=== PATIENT | female | born 1990 | race Caucasian/White ===

== ENCOUNTER 2022-08-23 13:56 | Outpatient (CLI) | payer BC, SELFPAY ==
[2022-08-23 21:47] LABS: Albumin* 4.3 g/dL (3.3-5.0); Chloride* 106 mmol/L (96-114); Sodium* 139 mmol/L (135-149)
[2022-08-23 21:48] LABS: Potassium* 4.3 mmol/L (3.6-5.1)
[2022-08-23 21:50] LABS: Alanine Aminotransferase* 17 U/L (4-35); Alkaline Phosphatase* 58 U/L (40-150); Aspartate Amino Transferase* 23 U/L (12-35); Bilirubin Total* 0.3 mg/dL (0.1-1.5); Blood Urea Nitrogen* 12 mg/dL (5-24); Calcium* 8.8 mg/dL (8.4-10.6); Carbon Dioxide* 27 mmol/L (20-32); Creatinine* 0.7 mg/dL (0.5-1.5); Estimated Glomerular Filt Rate 120 ml/min; Glucose* 92 mg/dL (60-115); Total Protein* 6.8 g/dL (6.0-8.3)
[2022-08-23 22:34] LABS: HIV 1/2/P24 Combo Screen* Negative (Negative); Hepatitis C Virus Antibody* Negative (Negative)
[2022-08-23 23:17] LABS: Chlamydia DNA Amplified* NOT DETECTED (No Detected); GC DNA Amplified* NOT DETECTED (No Detected)
[2022-08-26 06:27] LABS: Rapid Plasma Reagin (RPR) Non Reactive (Non Reactive)
== END 2022-08-23 13:57 | disposition home or self-care (01) ==
PROVIDERS: PCP Family Medicine; Visit Provider Family Medicine
DX: Z00.00 Encounter for general adult medical examination without abnormal findings (principal); Z11.3 Encounter for screening for infections with a predominantly sexual mode of transmission; Z11.59 Encounter for screening for other viral diseases
CPT/HCPCS: 80053; 86592; 86703; 86803; 87491; 87591

== ENCOUNTER 2023-04-08 16:27 | Emergency (ER) | payer BC, SELFPAY ==
[2023-04-08 16:34] VITALS: BP 122/95; PULSE 90; RESP 18; TEMP 36.4; O2SAT 99; BMI 24.3
[2023-04-08] MEDS: 0.9 % SODIUM CHLORIDE 1000 ml 1,000 ML IV (17:05)
[2023-04-08] MEDS: diphenhydrAMINE 50 MG/ML inj 25 MG IVP (17:08)
[2023-04-08] MEDS: KETOROLAC 30 MG/ML inj IVP (17:08)
--- NOTE | 2023-04-08 17:50 | ED.GENADULT ---
HPI - General Adult General Chief complaint: Headache/Migraine Stated complaint: Migrane and vomiting due to medication Time Seen by Provider: 04/08/23 16:30 Source: patient Mode of arrival: ambulatory Limitations: no limitations History of Present Illness HPI narrative: 32-year-old female coming in today complaining of a migraine headache. Very similar to ones she has had in the past. She denies any focal neurologic deficits. She denies any recent illness, fevers, chills. She does feel nauseated and has been vomiting today. She took Tylenol, Zofran yesterday when the headache started and then a Imitrex today which did not help. She did start Suboxone recently. She did take Zofran prior to coming in as well. Related Data Home Medications Medication Instructions Recorded Confirmed ipratropium 0.5 mg-albuterol 3 mg 3 ml inhalation Q4-6H PRN 08/07/22 11/09/22 (2.5 mg base)/3 mL nebulization soln clonidine HCl 0.1 mg tablet 0.1 mg PO DAILY PRN 11/09/22 11/09/22 Previous Rx's Medication Instructions Recorded albuterol sulfate 90 mcg/actuation 2 puff inhalation Q4-6H #6.7 grams 08/23/22 aerosol inhaler (Ventolin HFA) norethindrone (contraceptive) 0.35 0.35 mg PO QDAY #84 tabs 08/23/22 mg tablet propranolol 20 mg tablet 20 mg PO BID PRN anxiety #90 tabs 08/23/22 sumatriptan succinate 100 mg tablet See Rx Instructions PO .COMPLEX #9 08/23/22 tabs trazodone 50 mg tablet 50 mg PO QHS PRN insomnia #90 tabs 08/23/22 terbinafine HCl 250 mg tablet 250 mg PO QDAY #14 tabs 11/09/22 lamotrigine 100 mg tablet 100 mg PO DAILY #90 tabs 01/03/23 Allergies Allergy/AdvReac Type Severity Reaction Status Date / Time Gadolinium-Containing Allergy Mild Anaphylaxis Verified 11/09/22 13:15 Contrast Medi Iodinated Contrast Media Allergy Mild Anaphylaxis Verified 11/09/22 13:15 Review of Systems Status of ROS: Reports: 10 or more systems reviewed and unremarkable except as noted in History and below PFSH PFSH Social History Smoking Status: Current every day smoker What tobacco products do you use: cigarettes Do you use any of these nicotine containing products: Other Second hand tobacco smoke exposure: No How often do you have a drink containing alcohol: never How often do you have six or more drinks on one occasion: Never AUDIT-C Alcohol total score: 0 Non-prescribed substance use: amphetamines/methamphetamines Non-prescribed substance use details: 3 hits last night of meth-didn't help Little interest or pleasure in doing things: not at all service: No Exam Narrative: Exam Narrative: Well-nourished well-developed patient in no acute distress. Alert and oriented. Answers questions appropriately. Mood and affect are appropriate. Thoughts are goal oriented and rational. No tangential or magical thinking noted. Patient speaks in full sentences without needing to catch her breath. Does not appear ill or toxic. HEENT: Normocephalic atraumatic. Pupils are equally round reactive to light. Extraocular muscles are intact. Conjunctivae are moist without any icterus noted. Moist mucous membranes. Posterior pharynx is normal. Neck is soft without any lymphadenopathy or thyromegaly. No masses are appreciated. Cardiovascular: Heart is regular rate and rhythm S1 and S2 are present without any murmurs. Lungs: Clear to auscultation bilaterally no wheezes rhonchi or rales are appreciated. Patient takes deep breaths without any discomfort. Abdomen: Soft and nontender nondistended with normal bowel sounds. Extremities: Bilateral lower extremities are without edema. Skin: Well perfused without any obvious rashes. Const: Vital Signs, click to edit/add: Vital Signs - 24 hr 04/08/23 16:34 Temperature 97.5 F L Pulse Rate [Pulse Oximeter] 90 Respiratory Rate 18 Blood Pressure [Ri ght Upper Arm] 122/95 H Pulse Oximetry 99 Oxygen Delivery Me thod Room Air Course Course ED Course: IV was established and patient was given a L of normal saline, Toradol and Benadryl. Symptoms improved. Vital Signs Vital signs: Initial Vital Signs Temperature 97.5 F L 04/08/23 16:34 Temperature Source Temporal Artery Scan 04/08/23 16:34 Pulse Rate 90 04/08/23 16:34 Pulse Rhythm Regular 04/08/23 16:34 Respiratory Rate 18 04/08/23 16:34 Blood Pressure 122/95 H 04/08/23 16:34 Blood Pressure Mean 104 04/08/23 16:34 Blood Pressure Position Supine 04/08/23 16:34 Pulse Oximetry 99 04/08/23 16:34 Oxygen Delivery Method Room Air 04/08/23 16:34 Vital Signs Temperature 97.5 F L 04/08/23 16:34 Pulse Rate 90 04/08/23 16:34 Respiratory Rate 18 04/08/23 16:34 Blood Pressure 122/95 H 04/08/23 16:34 Pulse Oximetry 99 04/08/23 16:34 Oxygen Delivery Method Room Air 04/08/23 16:34 Temperature 97.5 F L 04/08/23 16:34 Pulse Rate 90 04/08/23 16:34 Respiratory Rate 18 04/08/23 16:34 Blood Pressure 122/95 H 04/08/23 16:34 Pulse Oximetry 99 04/08/23 16:34 Oxygen Delivery Method Room Air 04/08/23 16:34 Medical Decision Making MDM Narrative Medical decision making narrative: 32-year-old female with a migraine. Patient discharged home in improved condition. we discussed rest and follow-up as needed. Patient sent home with Ariel ESPOSITO per her request. Discharge Plan Discharge Clinical Impression: Migraine Patient Disposition: Home, Self-Care Condition: Improved Additional Instructions: Ariel ESPOSITO sent to [facility] Prescriptions: No Action clonidine HCl 0.1 mg tablet 0.1 mg PO DAILY PRN Patient Comments: TAKE 1 TABLET BY MOUTH DAILY NEEDED FOR ANXIETY OR PANIC norethindrone (contraceptive) 0.35 mg tablet 0.35 mg PO QDAY Qty: 84 3RF sumatriptan succinate 100 mg tablet See Rx Instructions PO .COMPLEX Qty: 9 12RF Rx Instructions: take 1 tab at onset of headache; if no relief, may repeat 1 tab after at least 2 hrs; max = 2 tabs/24 hrs PO trazodone 50 mg tablet 50 mg PO QHS PRN (Reason: insomnia) Qty: 90 3RF propranolol 20 mg tablet 20 mg PO BID PRN (Reason: anxiety) Qty: 90 3RF albuterol sulfate [Ventolin HFA] 90 mcg/actuation HFA aerosol inhaler 2 puff inhalation Q4-6H Qty: 6.7 3RF Rx Instructions: wants 'the blue one' if possible terbinafine HCl 250 mg tablet 250 mg PO QDAY Qty: 14 0RF ipratropium-albuterol 0.5 mg-3 mg(2.5 mg base)/3 mL solution for nebulization 3 ml inhalation Q4-6H PRN lamotrigine 100 mg tablet 100 mg PO DAILY Qty: 90 3RF Follow Up/Referrals: Karlee Romero MD [Primary Care Provider] - Stand Alone Forms: [employer] Info Instructions
== END 2023-04-08 18:21 | disposition home or self-care (01) ==
LOC: ED 18:15
PROVIDERS: Emergency Provider Family Medicine; PCP Family Medicine
DX: G43.909 Migraine, unspecified, not intractable, without status migrainosus (principal)
CPT/HCPCS: 96374; 96375; 99283; 99284; J1200; J1885; J7030

== ENCOUNTER 2023-04-10 15:42 | Emergency (ER) | payer BC, SELFPAY ==
[2023-04-10] VITALS (8 sets, daily range): BP systolic 117; BP diastolic 78; PULSE 69–87; RESP 16; TEMP 35.9; O2SAT 98–100; BMI 25.1
--- NOTE | 2023-04-10 16:40 | ED_ITS ---
HPI - General Adult General Chief complaint: Headache/Migraine Stated complaint: Migraine, neck pain Time Seen by Provider: 04/10/23 16:16 History of Present Illness HPI narrative: Pt was here on Saturday for migraines. Pt states migraines and neck pain continue, pt states she is still throwing up yellow. Also reports waking up sweating for several nights. Pt reports she had a concussion in July and is worried these migraines are related to this . Pt states she looked up symptoms of meningitis on the internet and is concerned about this as well because her periods have been heavier than normal for the last 5 months. Pt also reports she has started taking suboxone recently and she also takes lamotrigine and sumatriptan and zofran, pt reports she looked up on google to see if her medications interacted and saw that sumatriptan and suboxone can react and is concerned about this now as well. Pt appears anxious in triage. 32-year-old woman presenting to the emergency department with concern of headache and potential medication interactions. She was seen in this department 2 days ago and treated for headache/migraine with normal saline IV ketorolac and diphenhydramine. She is concerned that she has more frequent headaches and increasing more severe over the last year. She notes a history of migraines ?since I was a toddler?. In July apparently was diagnosed with a concussion. It sounds as though this corresponds with worsening headaches. She has also been waking up sweating for several nights. She has recently initiated treatment with Suboxone. Is concerned about interaction potentially between sumatriptan and Suboxone. Does have lamotrigine sumatriptan Zofran available for headaches. She has been ?throwing up yellow?. She is having persistent as demonstrated, left-sided neck pain. Sweats but no reported fever. It becomes also apparent that is concerned about potential meningitis. She does smoke? Related Data Home Medications Medication Instructions Recorded Confirmed ipratropium 0.5 mg-albuterol 3 mg 3 ml inhalation Q4-6H PRN 08/07/22 11/09/22 (2.5 mg base)/3 mL nebulization soln clonidine HCl 0.1 mg tablet 0.1 mg PO DAILY PRN 11/09/22 11/09/22 buprenorphine 8 mg-naloxone 2 mg 10 mg sublingual BID 04/10/23 04/10/23 sublingual film (Suboxone) hydroxyzine HCl 25 mg tablet 25 mg PO 3XD 04/10/23 04/10/23 ibuprofen 600 mg tablet 600 mg PO 3XD 04/10/23 04/10/23 naloxone intranasal 04/10/23 ondansetron HCl 4 mg tablet 4 mg PO Q8H PRN 04/10/23 04/10/23 Previous Rx's Medication Instructions Recorded albuterol sulfate 90 mcg/actuation 2 puff inhalation Q4-6H #6.7 grams 08/23/22 aerosol inhaler (Ventolin HFA) norethindrone (contraceptive) 0.35 0.35 mg PO QDAY #84 tabs 08/23/22 mg tablet propranolol 20 mg tablet 20 mg PO BID PRN anxiety #90 tabs 08/23/22 sumatriptan succinate 100 mg tablet See Rx Instructions PO .COMPLEX #9 08/23/22 tabs trazodone 50 mg tablet 50 mg PO QHS PRN insomnia #90 tabs 08/23/22 terbinafine HCl 250 mg tablet 250 mg PO QDAY #14 tabs 11/09/22 lamotrigine 100 mg tablet 100 mg PO DAILY #90 tabs 01/03/23 Allergies Allergy/AdvReac Type Severity Reaction Status Date / Time Gadolinium-Containing Allergy Mild Anaphylaxis Verified 11/09/22 13:15 Contrast Medi Iodinated Contrast Media Allergy Mild Anaphylaxis Verified 11/09/22 13:15 aspirin Allergy Unknown Verified 04/10/23 16:00 Review of Systems Status of ROS: Reports: 6 or more systems reviewed and unremarkable except as noted in History and below [facility] Social History Smoking Status: Current every day smoker What tobacco products do you use: cigarettes Do you use any of these nicotine containing products: Other Second hand tobacco smoke exposure: No How often do you have a drink containing alcohol: never How often do you have six or more drinks on one occasion: Never AUDIT-C Alcohol total score: 0 Non-prescribed substance use: denies use Little interest or pleasure in doing things: not at all service: No Exam Narrative: Exam Narrative: Pleasant. Smell of cigarette smoke. Mildly anxious. Breathing easily. Cranial nerves 2-12 intact. Well-perfused peripherally and without edema. Heart with regular rate and rhythm. Neck exam --is lying flat in the bed but brings her head up without apparent distress. Speaking fluidly easily. Rather tense and somewhat tender low paracervical and trapezial musculature. Pupils are equal and briskly reactive. Skin is warm dry without rash. Further neuro -Kernig's and Brudzinski's are negative. Const: Vital Signs, click to edit/add: Vital Signs - 24 hr 04/10/23 15:51 Temperature 96.6 F L Pulse Rate [Pulse Oximeter] 87 Respiratory Rate 16 Blood Pressure [Ri ght Upper Arm] 117/78 Pulse Oximetry 98 Oxygen Delivery Me thod Room Air Documenting provider has reviewed patient's vital signs: yes Course Vital Signs Vital signs: Initial Vital Signs Temperature 96.6 F L 04/10/23 15:51 Temperature Source Temporal Artery Scan 04/10/23 15:51 Pulse Rate 87 04/10/23 15:51 Respiratory Rate 16 04/10/23 15:51 Blood Pressure 117/78 04/10/23 15:51 Blood Pressure Mean 91 04/10/23 15:51 Blood Pressure Position Sitting 04/10/23 15:51 Pulse Oximetry 98 04/10/23 15:51 Oxygen Delivery Method Room Air 04/10/23 15:51 Vital Signs Temperature 96.6 F L 04/10/23 15:51 Pulse Rate 87 04/10/23 15:51 Respiratory Rate 16 04/10/23 15:51 Blood Pressure 117/78 04/10/23 15:51 Pulse Oximetry 98 04/10/23 15:51 Oxygen Delivery Method Room Air 04/10/23 15:51 Temperature 96.6 F L 04/10/23 15:51 Pulse Rate 76 04/10/23 19:45 Respiratory Rate 16 04/10/23 15:51 Blood Pressure 117/78 04/10/23 15:51 Pulse Oximetry 100 04/10/23 19:45 Oxygen Delivery Method Room Air 04/10/23 15:51 Medical Decision Making MDM Narrative Medical decision making narrative: I wonder if some of these night sweats could be related to initiating Suboxone more than anything else. Could be pain as well. I think it is unlikely that there is meningitis here. She does not have meningeal signs other than perhaps headache. However since we will be treating her headache with IV fluids, diphenhydramine, Zofran, we will check a couple labs for reassurance which I think will also be therapeutic. Would be reasonable to discuss with pharmacy as well. I stated I am going to leave to discuss this quickly and then she asked if in the interim she could have the IV treatment that she received 2 days ago. Consider addition of dexamethasone as well; hoping this will have longer effect. Pharmacy does not have concerns of medication interactions as feared by Ms. Salcedo. CBC and CRP are reassuring. With treatments above was markedly improved. See patient discharge plan. Medical Records Medical records reviewed: Yes I reviewed the patient's medical records Lab Data Lab results reviewed: Yes I reviewed the patient's lab results Labs: Lab Results 04/10/23 Range/Units 17:15 WBC 4.65 (4.50-11.00) K/uL RBC 4.20 (4.00-5.20) m/uL Hgb 12.0 (12.0-16.0) gm/dL Hct 35.6 (33.0-51.0) % MCV 85 (80-100) fL MCH 29 (26-34) pg MCHC 34 (32-36) gm/dL RDW Coeff of Camilla 12.8 (11.5-15.5) % Plt Count 248 (140-440) K/uL Neut % (Auto) 46.0 (42.0-72.0) % Lymph % (Auto) 44.5 H (20-44) % [place] % (Auto) 5.2 (0.0-11.0) % Eos % (Auto) 3.7 (0.0-7.0) % Baso % (Auto) 0.6 (0.0-3.0) % Neut # (Auto) 2.14 (1.7-7.0) K/uL Lymph # (Auto) 2.10 (0.90-2.90) K/uL [place] # (Auto) 0.20 (0.00-0.90) K/UL Eos # (Auto) 0.17 (0.00-0.50) K/uL Baso # (Auto) 0.03 (0.00-0.30) K/uL Abs Immat Gran (auto) 0.00 (0.00-0.30) K/uL Imm/Tot Granulo (auto) 0.0 % C-Reactive Protein < 0.5 L (0.5-1.0) mg/dL Discharge Plan Discharge Clinical Impression: Migraine Patient Disposition: Home, Self-Care Condition: Improved Additional Instructions: Focus on hydration. Try to get quality and regular sleep. Try to get in a little heart pumping exercise daily. And do your best to quit smoking. Consider discussing this cessation as well as adjustment of your headache medications or potential further evaluation or treatment for concussion and what might be secondary headaches, on follow-up with your primary care provider. See handout also on upper back stretches/exercises that might be helpful in decreasing recurrence of your headaches as I think some of them are triggered by upper back/neck muscle tension. The dexamethasone probably has not gotten to full effect and I would expect it to stay in your system over the next day and a half. Prescriptions: No Action clonidine HCl 0.1 mg tablet 0.1 mg PO DAILY PRN Patient Comments: TAKE 1 TABLET BY MOUTH DAILY NEEDED FOR ANXIETY OR PANIC norethindrone (contraceptive) 0.35 mg tablet 0.35 mg PO QDAY Qty: 84 3RF sumatriptan succinate 100 mg tablet See Rx Instructions PO .COMPLEX Qty: 9 12RF Rx Instructions: take 1 tab at onset of headache; if no relief, may repeat 1 tab after at least 2 hrs; max = 2 tabs/24 hrs PO trazodone 50 mg tablet 50 mg PO QHS PRN (Reason: insomnia) Qty: 90 3RF propranolol 20 mg tablet 20 mg PO BID PRN (Reason: anxiety) Qty: 90 3RF albuterol sulfate [Ventolin HFA] 90 mcg/actuation HFA aerosol inhaler 2 puff inhalation Q4-6H Qty: 6.7 3RF Rx Instructions: wants 'the blue one' if possible terbinafine HCl 250 mg tablet 250 mg PO QDAY Qty: 14 0RF ipratropium-albuterol 0.5 mg-3 mg(2.5 mg base)/3 mL solution for nebulization 3 ml inhalation Q4-6H PRN hydroxyzine HCl 25 mg tablet 25 mg PO 3XD ibuprofen 600 mg tablet 600 mg PO 3XD buprenorphine-naloxone [Suboxone] 8-2 mg film 10 mg sublingual BID naloxone [Narcan] intranasal ondansetron HCl 4 mg tablet 4 mg PO Q8H PRN lamotrigine 100 mg tablet 100 mg PO DAILY Qty: 90 3RF Follow Up/Referrals: Karlee Romero MD [Primary Care Provider] - Stand Alone Forms: [employer] Info Instructions
[2023-04-10] MEDS: ONDANSETRON 2 MG/ML inj 4 MG IVP (17:25)
[2023-04-10] MEDS: 0.9 % SODIUM CHLORIDE 1000 ml 1,000 ML IV (17:25)
[2023-04-10] MEDS: diphenhydrAMINE 50 MG/ML inj 25 MG IVP (17:25)
[2023-04-10 17:26] LABS: Basophils Absolute Auto 0.03 K/uL (0.00-0.30); Basophils Percent Auto 0.6 % (0.0-3.0); Eosinophils Absolute Auto 0.17 K/uL (0.00-0.50); Eosinophils Percent Auto 3.7 % (0.0-7.0); Hematocrit 35.6 % (33.0-51.0); Lymphocytes Percent Auto 44.5 % (20-44); Mean Corpuscular HGB Conc 34 gm/dL (32-36); Mean Corpuscular Hemoglobin 29 pg (26-34); Mean Corpuscular Volume 85 fL (80-100); Monocytes Percent Auto 5.2 % (0.0-11.0); Neutrophils Absolute Auto 2.14 K/uL (1.7-7.0); Platelet Count* 248 K/uL (140-440); RDW Coefficient of Variation % 12.8 % (11.5-15.5); White Blood Count* 4.65 K/uL (4.50-11.00)
[2023-04-10 17:42] LABS: Slide Review Reflex No
[2023-04-10 17:57] LABS: C Reactive Protein* < 0.5 mg/dL (0.5-1.0)
[2023-04-10] MEDS: dexAMETHasone 10 MG/ML inj IVP (18:13)
== END 2023-04-10 19:56 | disposition home or self-care (01) ==
PROVIDERS: Emergency Provider Family Medicine; PCP Family Medicine
DX: G43.909 Migraine, unspecified, not intractable, without status migrainosus (principal)
CPT/HCPCS: 36415; 85025; 86140; 96374; 96375; 99283; 99284; J1100; J1200; J2405; J7030

== ENCOUNTER 2023-09-30 14:30 | Emergency (ER) | payer SELFPAY ==
[2023-09-30 15:04] VITALS: BP 119/78; PULSE 76; RESP 18; O2SAT 100; BMI 25.8
--- NOTE | 2023-09-30 17:41 | ED.GENADULT ---
HPI - General Adult General Date Seen: 09/30/23 Chief complaint: Headache/Migraine Stated complaint: Pinched nerve, migraine, nausea Time Seen by Provider: 09/30/23 17:33 Source: patient, RN notes reviewed and old records reviewed Mode of arrival: ambulatory Limitations: no limitations History of Present Illness HPI narrative: Patient is a 32-year-old woman with a long history of migraine headaches. She says that she has had a migraine for the past couple of days which seems to be exacerbated by the fact that she has a pinched nerve in her upper back/shoulder as well. She says that she has to take Imitrex for her headaches which did help, but she started taking Suboxone, and she feels like Imitrex and Suboxone are problematic together, so she has stopped taking the Imitrex. She says she has tried Tylenol and ibuprofen the past couple of days but has not found relief. She has had nausea and has had a couple episodes of vomiting, including once while she was at the chiropractor for her pinched nerve today. No fevers or recent trauma. Headache otherwise typical. She says she gets migraines every couple of months or so, we did see her here in July with migraine twice and she responded well to a standard migraine cocktail. She says she feels she is dehydrated and needs fluids at this point. Related Data Home Medications Medication Instructions Recorded Confirmed ipratropium 0.5 mg-albuterol 3 mg 3 ml inhalation Q4-6H PRN 08/07/22 11/09/22 (2.5 mg base)/3 mL nebulization soln clonidine HCl 0.1 mg tablet 0.1 mg PO DAILY PRN 11/09/22 09/30/23 buprenorphine 8 mg-naloxone 2 mg 10 mg sublingual BID 04/10/23 09/30/23 sublingual film (Suboxone) hydroxyzine HCl 25 mg tablet 25 mg PO 3XD 04/10/23 04/10/23 ibuprofen 600 mg tablet 600 mg PO 3XD 04/10/23 04/10/23 naloxone intranasal 04/10/23 ondansetron HCl 4 mg tablet 4 mg PO Q8H PRN 04/10/23 04/10/23 Previous Rx's Medication Instructions Recorded albuterol sulfate 90 mcg/actuation 2 puff inhalation Q4-6H #6.7 grams 08/23/22 aerosol inhaler (Ventolin HFA) norethindrone (contraceptive) 0.35 0.35 mg PO QDAY #84 tabs 08/23/22 mg tablet propranolol 20 mg tablet 20 mg PO BID PRN anxiety #90 tabs 08/23/22 sumatriptan succinate 100 mg tablet See Rx Instructions PO .COMPLEX #9 08/23/22 tabs trazodone 50 mg tablet 50 mg PO QHS PRN insomnia #90 tabs 08/23/22 terbinafine HCl 250 mg tablet 250 mg PO QDAY #14 tabs 11/09/22 lamotrigine 100 mg tablet 100 mg PO DAILY #90 tabs 01/03/23 ondansetron 4 mg disintegrating 4 mg PO Q8H PRN nausea and 09/30/23 tablet vomiting #10 tabs rimegepant 75 mg disintegrating 75 mg PO Q OTHER DAY PRN migraine 09/30/23 tablet (Nurtec ODT) headache #7 tabs Allergies Allergy/AdvReac Type Severity Reaction Status Date / Time Gadolinium-Containing Allergy Mild Anaphylaxis Verified 09/30/23 15:10 Contrast Medi Iodinated Contrast Media Allergy Mild Anaphylaxis Verified 09/30/23 15:10 aspirin Allergy Unknown Verified 09/30/23 15:10 Review of Systems Status of ROS: Reports: 10 or more systems reviewed and unremarkable except as noted in History and below [facility] Social History Smoking Status: Current every day smoker What tobacco products do you use: cigarettes Do you use any of these nicotine containing products: Other Second hand tobacco smoke exposure: No How often do you have a drink containing alcohol: never How often do you have six or more drinks on one occasion: Never AUDIT-C Alcohol total score: 0 Non-prescribed substance use: amphetamines/methamphetamines Little interest or pleasure in doing things: not at all service: No Exam Narrative: Exam Narrative: Vital signs as noted above. In general, an alert, well-appearing patient. Head: Normocephalic, atraumatic. Eyes: Pupils are equal reactive. Extraocular movements are full. Conjunctivae are normal. ENT: Mucous membranes are moist. Neck: Supple without lymphadenopathy. Neurologic: Patient is alert and oriented to person and place. Speech is fluent. Face is symmetric. Moves all extremities equally. Affect: Normal. Skin: Warm and dry. Well perfused. Const: Vital Signs, click to edit/add: Vital Signs - 24 hr 09/30/23 15:04 Pulse Rate [Pulse Oximeter] 76 Respiratory Rate 18 Blood Pressure [Ri ght Upper Arm] 119/78 Pulse Oximetry 100 Documenting provider has reviewed patient's vital signs: yes Course Course ED Course: Will go ahead and place an IV, give a L of normal saline, Toradol, Zofran and Benadryl. Did discuss with her I think she probably should have some migraine specific abortive medicine at home as she is otherwise likely to end up needing to come to the ER more frequently with headaches. She could consider a different triptan or a newer medications such as a CGRP inhibitor. I will prescribe some Zofran for home use so that and a minimum she is able to keep up with oral fluids. Patient is improved after medications, she was sleeping soundly when I went to reassess her. She does feel able to go home. I will prescribe Zofran for her and also will prescribe Nurtec, but advised her that if insurance does not cover this medicine it is very expensive. In that case, I would have her talk to her primary doctor about prescribing something perhaps like Zomig to try. Return as needed. Vital Signs Vital signs: Initial Vital Signs Pulse Rate 76 09/30/23 15:04 Respiratory Rate 18 09/30/23 15:04 Blood Pressure 119/78 09/30/23 15:04 Blood Pressure Mean 91 09/30/23 15:04 Blood Pressure Position Sitting 09/30/23 15:04 Pulse Oximetry 100 09/30/23 15:04 Vital Signs Pulse Rate 76 09/30/23 15:04 Respiratory Rate 18 09/30/23 15:04 Blood Pressure 119/78 09/30/23 15:04 Pulse Oximetry 100 09/30/23 15:04 Pulse Rate 76 09/30/23 15:04 Respiratory Rate 18 09/30/23 15:04 Blood Pressure 119/78 09/30/23 15:04 Pulse Oximetry 100 09/30/23 15:04 Medications Administered Medications: Discontinued Medications Generic Name Dose Route Start Last Admin Trade Name Freq PRN Reason Stop Dose Admin Diphenhydramine HCl 25 mg 09/30/23 17:40 09/30/23 18:03 Diphenhydramine 50 Mg/Ml Inj IVP 09/30/23 17:41 25 mg ONCE ONE Administration Sodium Chloride 1,000 mls @ 1,000 mls/hr 09/30/23 17:45 09/30/23 18:03 0.9 % Sodium Chloride 1000 Ml IV 09/30/23 18:44 1,000 mls/hr .Q1H SUDARSHAN Administration Ketorolac Tromethamine 15 mg 09/30/23 17:40 09/30/23 18:03 Ketorolac 15 Mg/Ml Inj IVP 09/30/23 17:41 15 mg ONCE ONE Administration Ondansetron HCl 4 mg 09/30/23 17:40 09/30/23 18:03 Ondansetron 2 Mg/Ml Inj IVP 09/30/23 17:41 4 mg ONCE ONE Administration Discharge Plan Discharge Clinical Impression: Migraine Patient Disposition: Home, Self-Care Condition: Improved Instructions: Migraine Headache (ED) Additional Instructions: I will prescribe Nurtec free to try for future use with migraine. If insurance does not cover this, I would ask her primary doctor about prescribing something different, so make may be a good choice for you. I am also prescribing some Zofran that you can use if needed for nausea or vomiting. Return to the ER for worsening or new symptoms. Prescriptions: New ondansetron 4 mg tablet,disintegrating 4 mg PO Q8H PRN (Reason: nausea and vomiting) Qty: 10 0RF Nurtec ODT 75 mg tablet,disintegrating 75 mg PO Q OTHER DAY PRN (Reason: migraine headache) Qty: 7 0RF No Action clonidine HCl 0.1 mg tablet 0.1 mg PO DAILY PRN Patient Comments: TAKE 1 TABLET BY MOUTH DAILY NEEDED FOR ANXIETY OR PANIC norethindrone (contraceptive) 0.35 mg tablet 0.35 mg PO QDAY Qty: 84 3RF sumatriptan succinate 100 mg tablet See Rx Instructions PO .COMPLEX Qty: 9 12RF Rx Instructions: take 1 tab at onset of headache; if no relief, may repeat 1 tab after at least 2 hrs; max = 2 tabs/24 hrs PO trazodone 50 mg tablet 50 mg PO QHS PRN (Reason: insomnia) Qty: 90 3RF propranolol 20 mg tablet 20 mg PO BID PRN (Reason: anxiety) Qty: 90 3RF albuterol sulfate [Ventolin HFA] 90 mcg/actuation HFA aerosol inhaler 2 puff inhalation Q4-6H Qty: 6.7 3RF Rx Instructions: wants 'the blue one' if possible terbinafine HCl 250 mg tablet 250 mg PO QDAY Qty: 14 0RF ipratropium-albuterol 0.5 mg-3 mg(2.5 mg base)/3 mL solution for nebulization 3 ml inhalation Q4-6H PRN hydroxyzine HCl 25 mg tablet 25 mg PO 3XD ibuprofen 600 mg tablet 600 mg PO 3XD buprenorphine-naloxone [Suboxone] 8-2 mg film 10 mg sublingual BID naloxone [Narcan] intranasal ondansetron HCl 4 mg tablet 4 mg PO Q8H PRN lamotrigine 100 mg tablet 100 mg PO DAILY Qty: 90 3RF Follow Up/Referrals: Karlee Romero MD [Primary Care Provider] - Stand Alone Forms: [facility] Info Inst[facility]
[2023-09-30] MEDS: 0.9 % SODIUM CHLORIDE 1000 ml 1,000 ML IV (18:03)
[2023-09-30] MEDS: ONDANSETRON 2 MG/ML inj 4 MG IVP (18:03)
[2023-09-30] MEDS: KETOROLAC 15 MG/ML inj IVP (18:03)
[2023-09-30] MEDS: diphenhydrAMINE 50 MG/ML inj 25 MG IVP (18:03)
== END 2023-09-30 19:26 | disposition home or self-care (01) ==
PROVIDERS: Emergency Provider Emergency Medicine; PCP Family Medicine
DX: G43.909 Migraine, unspecified, not intractable, without status migrainosus (principal)
CPT/HCPCS: 96374; 96375; 99284; J1200; J1885; J2405; J7030

== ENCOUNTER 2024-02-09 18:11 | Emergency (ER) | payer OTHER, BC, SELFPAY ==
[2024-02-09 18:25] VITALS: BP 116/75; PULSE 79; RESP 18; TEMP 36.4; O2SAT 99
--- NOTE | 2024-02-09 18:53 | CRLHL7_ITS ---
For Patients: As a result of the Cures Act, medical imaging exams and procedure reports are released immediately into your electronic medical record. You may view this report before your referring provider. If you have questions, please contact your health care provider. INDICATION: Pain after injury. TECHNIQUE: Two views left elbow. IMPRESSION: Slightly comminuted but nondisplaced fracture through the tuft of the distal phalanx great toe. Normal joints and anatomic alignment. Dictated by Kun Chen MD @ 02/09/2024 8:05:58 PM (Electronically Signed)
--- NOTE | 2024-02-09 19:41 | ED_ITS ---
HPI - General Adult General Chief complaint: Extremity Pain/Injury, Lower Stated complaint: L foot injury--dropped keg Time Seen by Provider: 02/09/24 18:59 Source: patient Mode of arrival: ambulatory Limitations: no limitations History of Present Illness HPI narrative: 33-year-old female coming in today complaining of toe pain after dropping a full keg on her big left toe. Related Data Home Medications ?Medication ?Instructions ?Recorded ?Confirmed ipratropium 0.5 mg-albuterol 3 mg 3 ml inhalation Q4-6H PRN 08/07/22 11/09/22 (2.5 mg base)/3 mL nebulization soln clonidine HCl 0.1 mg tablet 0.1 mg PO DAILY PRN 11/09/22 09/30/23 buprenorphine 8 mg-naloxone 2 mg 10 mg sublingual BID 04/10/23 09/30/23 sublingual film (Suboxone) hydroxyzine HCl 25 mg tablet 25 mg PO 3XD 04/10/23 04/10/23 ibuprofen 600 mg tablet 600 mg PO 3XD 04/10/23 04/10/23 naloxone intranasal 04/10/23 ondansetron HCl 4 mg tablet 4 mg PO Q8H PRN 04/10/23 04/10/23 Previous Rx's ?Medication ?Instructions ?Recorded albuterol sulfate 90 mcg/actuation 2 puff inhalation Q4-6H #6.7 grams 08/23/22 aerosol inhaler (Ventolin HFA) norethindrone (contraceptive) 0.35 0.35 mg PO QDAY #84 tabs 08/23/22 mg tablet propranolol 20 mg tablet 20 mg PO BID PRN anxiety #90 tabs 08/23/22 sumatriptan succinate 100 mg tablet See Rx Instructions PO .COMPLEX #9 08/23/22 tabs trazodone 50 mg tablet 50 mg PO QHS PRN insomnia #90 tabs 08/23/22 terbinafine HCl 250 mg tablet 250 mg PO QDAY #14 tabs 11/09/22 ondansetron 4 mg disintegrating 4 mg PO Q8H PRN nausea and 09/30/23 tablet vomiting #10 tabs rimegepant 75 mg disintegrating 75 mg PO Q OTHER DAY PRN migraine 09/30/23 tablet (Nurtec ODT) headache #7 tabs lamotrigine 100 mg tablet 100 mg PO DAILY #90 tabs 01/10/24 amoxicillin 875 mg-potassium 1 tab PO BID 7 days #14 tabs 02/09/24 clavulanate 125 mg tablet Allergies Allergy/AdvReac Type Severity Reaction Status Date / Time Gadolinium-Containing Allergy Mild Anaphylaxis Verified 09/30/23 15:10 Contrast Medi Iodinated Contrast Media Allergy Mild Anaphylaxis Verified 09/30/23 15:10 aspirin Allergy Unknown Verified 09/30/23 15:10 Review of Systems Status of ROS: Reports: 6 or more systems reviewed and unremarkable except as noted in History and below [facility] Social History Smoking Status: Current every day smoker What tobacco products do you use: cigarettes Do you use any of these nicotine containing products: Other Second hand tobacco smoke exposure: No How often do you have a drink containing alcohol: never How often do you have six or more drinks on one occasion: Never AUDIT-C Alcohol total score: 0 Non-prescribed substance use: amphetamines/methamphetamines Little interest or pleasure in doing things: not at all service: No Exam Narrative: Exam Narrative: Well-nourished well-developed patient in no acute distress. Alert and oriented. Answers questions appropriately. Mood and affect are appropriate. Thoughts are goal oriented and rational. No tangential or magical thinking noted. Patient speaks in full sentences without needing to catch her breath. HEENT: Normocephalic atraumatic. Extraocular muscles are intact. Conjunctivae are moist without any icterus noted. Moist mucous membranes. Extremities: Nail of the left 1st toe has been completely avulsed from the nail bed. Toes tender to touch. Remainder of the foot is entirely normal. Const: Vital Signs, click to edit/add: Vital Signs - 24 hr 02/09/24 18:25 Temperature 97.5 F L Pulse Rate [Pulse Oximeter] 79 Respiratory Rate 18 Blood Pressure [Ri ght Upper Arm] 116/75 Pulse Oximetry 99 Oxygen Delivery Me thod Room Air Course Course ED Course: X-ray of the toe reveals a tuft fracture. Digital block was done with lidocaine. The wound was cleaned thoroughly and irrigated. Cautery pen was used to put 4 holes at the mid nail, the nail was tucked back into the nail bed underneath the skin fold and then sutured with 3.0 Prolyne. Tdap was updated as her last 1 was in 2023. Wound was cleaned and dressed. Patient placed in a postop shoe. Vital Signs Vital signs: Initial Vital Signs Temperature 97.5 F L 02/09/24 18:25 Temperature Source Temporal Artery Scan 02/09/24 18:25 Pulse Rate 79 02/09/24 18:25 Pulse Rhythm Regular 02/09/24 18:25 Respiratory Rate 18 02/09/24 18:25 Blood Pressure 116/75 02/09/24 18:25 Blood Pressure Mean 88 02/09/24 18:25 Blood Pressure Position Sitting 02/09/24 18:25 Pulse Oximetry 99 02/09/24 18:25 Oxygen Delivery Method Room Air 02/09/24 18:25 Vital Signs Temperature 97.5 F L 02/09/24 18:25 Pulse Rate 79 02/09/24 18:25 Respiratory Rate 18 02/09/24 18:25 Blood Pressure 116/75 02/09/24 18:25 Pulse Oximetry 99 02/09/24 18:25 Oxygen Delivery Method Room Air 02/09/24 18:25 Temperature 97.5 F L 02/09/24 18:25 Pulse Rate 79 02/09/24 18:25 Respiratory Rate 18 02/09/24 18:25 Blood Pressure 116/75 02/09/24 18:25 Pulse Oximetry 99 02/09/24 18:25 Oxygen Delivery Method Room Air 02/09/24 18:25 Medications Administered Medications: Discontinued Medications Generic Name Dose Route Start Last Admin Trade Name Freq PRN Reason Stop Dose Admin Diphtheria/Tetanus/Acell Pertussis 0.5 ml 02/09/24 19:54 02/09/24 20:03 Tetanus/Diphth/Pertussis 0.5 Ml Syringe IM 02/09/24 19:55 0.5 ml .ONCE ONE Administration Lidocaine HCl 20 ml 02/09/24 19:34 02/09/24 19:58 Lidocaine Hcl 2 % Multidose 20 Ml Vial INJECTION 02/09/24 19:35 20 ml ONCE ONE Administration Medical Decision Making MDM Narrative Medical decision making narrative: 33-year-old female status post tuft fracture and avulsion of the nail the toe. Treated per above. Patient will be placed on Augmentin for a week. We discussed scarring and the nail falling off for not growing back appropriately, being slightly deformed. Patient had no other questions. Discharge Plan Discharge Clinical Impression: Fracture of distal phalanx of great toe, Avulsion of nail Patient Disposition: Home, Self-Care Condition: Improved Additional Instructions: Keep wound clean and dry. Do not soak such as taking baths, swimming. Watch for signs and symptoms of infection including increasing redness of the area, purulent drainage, or fever. If this occurs follow-up right away with your doctor or return to the ER- this will be unlikely since you will already be on antibiotics. Follow-up with your primary care provider for any concerns. Change dressing twice daily for 1st day, then once daily is sufficient. Suture removal in approximately 14 days with your primary care provider. Augmentin sent to pharmacy - okay to start in the morning. 8 tablets of [place] sent to [facility]. Prescriptions: New amoxicillin-pot clavulanate 875-125 mg tablet 1 tab PO BID 7 Days Qty: 14 0RF No Action clonidine HCl 0.1 mg tablet 0.1 mg PO DAILY PRN Patient Comments: TAKE 1 TABLET BY MOUTH DAILY NEEDED FOR ANXIETY OR PANIC norethindrone (contraceptive) 0.35 mg tablet 0.35 mg PO QDAY Qty: 84 3RF sumatriptan succinate 100 mg tablet See Rx Instructions PO .COMPLEX Qty: 9 12RF Rx Instructions: take 1 tab at onset of headache; if no relief, may repeat 1 tab after at least 2 hrs; max = 2 tabs/24 hrs PO trazodone 50 mg tablet 50 mg PO QHS PRN (Reason: insomnia) Qty: 90 3RF propranolol 20 mg tablet 20 mg PO BID PRN (Reason: anxiety) Qty: 90 3RF albuterol sulfate [Ventolin HFA] 90 mcg/actuation HFA aerosol inhaler 2 puff inhalation Q4-6H Qty: 6.7 3RF Rx Instructions: wants 'the blue one' if possible terbinafine HCl 250 mg tablet 250 mg PO QDAY Qty: 14 0RF ipratropium-albuterol 0.5 mg-3 mg(2.5 mg base)/3 mL solution for nebulization 3 ml inhalation Q4-6H PRN hydroxyzine HCl 25 mg tablet 25 mg PO 3XD ibuprofen 600 mg tablet 600 mg PO 3XD buprenorphine-naloxone [Suboxone] 8-2 mg film 10 mg sublingual BID naloxone [Narcan] intranasal ondansetron HCl 4 mg tablet 4 mg PO Q8H PRN ondansetron 4 mg tablet,disintegrating 4 mg PO Q8H PRN (Reason: nausea and vomiting) Qty: 10 0RF Nurtec ODT 75 mg tablet,disintegrating 75 mg PO Q OTHER DAY PRN (Reason: migraine headache) Qty: 7 0RF lamotrigine 100 mg tablet 100 mg PO DAILY Qty: 90 3RF Follow Up/Referrals: Karlee Romero MD [Primary Care Provider] - Stand Alone [facility]
[2024-02-09] MEDS: lidocaine HCL 2 % MULTIDOSE 20 ML VIAL INJECTION (19:58)
[2024-02-09] MEDS: TETANUS/DIPHTH/PERTUSSIS 0.5 ML SYRINGE IM (20:03)
--- OUTSIDE RECORDS SUMMARY | 2024-02-09 20:38 | XMS_ITS | Clinical Summary ---
Author Organization [facility] Address [address] [place] [address] Care Team Providers Care Rn Palliative Care Name Role Phone Debra Dominguez MD Primary Care Provider [phone] Allergies Active Allergy Reactions Criticality Noted Date Comments No Known Drug Allergy 05/11/2011 Medications Medication Sig Dispensed Refills Start Date End Date Status albuterol (PROAIR HFA/PROVENTIL HFA/VENTOLIN HFA) 108 (90 Base) MCG/ACT inhalerIndications: Uncomplicated asthma, unspecified asthma severity, unspecified whether persistent Inhale 1-2 puffs into the lungs every 4 hours as needed for shortness of breath / dyspnea 6.7 g 10/03/2020 Active levonorgestrel-ethi nyl estradiol (AVIANE) 0.1-20 MG-MCG tabletIndications:U ses control Take 1 tablet by mouth daily 30 tablet 10/03/2020 Active lamoTRIgine (LAMICTAL) 100 MG tabletIndications:M miguel (H) Take 1 tablet (100 mg) by mouth daily 30 tablet 10/04/2020 Active fluticasone (ARNUITY ELLIPTA) 100 MCG/ACT inhalerIndications: Uncomplicated asthma, unspecified asthma severity, unspecified whether persistent Inhale 1 puff into the lungs daily 30 each 10/04/2020 Active SUMAtriptan (IMITREX) 50 MG tabletIndications:M igraine without status migrainosus, not intractable, unspecified migraine type Take 1 tablet (50 mg) by mouth 2 times daily as needed for migraine 15 tablet 10/03/2020 Active benztropine (COGENTIN) 1 MG tabletIndications:P aranoia (psychosis) (H) Take 1 tablet (1 mg) by mouth 2 times daily 60 tablet 10/03/2020 Active melatonin 3 MG tabletIndications:I nsomnia, unspecified type Take 1 tablet (3 mg) by mouth nightly as needed for sleep 15 tablet 10/03/2020 Active metFORMIN (GLUCOPHAGE) 500 MG tabletIndications:W eight loss Take 1 tablet (500 mg) by mouth 2 times daily (with meals) 60 tablet 10/03/2020 Active OLANZapine zydis (ZYPREXA) 15 MG ODTIndications:Para noia (psychosis) (H) Take 1 tablet (15 mg) by mouth 2 times daily 60 tablet 10/03/2020 Active propranolol (INDERAL) 20 MG tabletIndications:G eneralized anxiety disorder Take 1 tablet (20 mg) by mouth 3 times daily 90 tablet 10/03/2020 Active topiramate (TOPAMAX) 50 MG tabletIndications:M miguel (H) Take 1 tablet (50 mg) by mouth every 12 hours 60 tablet 10/03/2020 Active acetaminophen (TYLENOL) 325 MG tablet Take 325-650 mg by mouth every 4 hours as needed for mild pain Active ibuprofen (ADVIL/MOTRIN) 200 MG tablet Take 400 mg by mouth every 6 hours as needed for pain Active alum & mag hydroxide-simethico ne (MAALOX) 200-200-20 MG/5ML SUSP suspension Take 30 mLs by mouth every 6 hours as needed for indigestion Active guaiFENesin-dextrom ethorphan (ROBITUSSIN DM) 100-10 MG/5ML syrup Take 10 mLs by mouth every 4 hours as needed for cough Active benzocaine-menthol (CEPACOL) 15-3.[address] 1 lozenge inside cheek every 2 hours as needed for sore throat Active loratadine (CLARITIN) 10 MG tablet Take 10 mg by mouth daily as needed for allergies Active senna-docusate (SENOKOT-S/PERICOLA CE) 8.6-50 MG tablet Take 2 tablets by mouth daily as needed for constipation Active dextran 70-hypromellose (TEARS NATURALE FREE PF) 0.1-0.3 % ophthalmic solution Place 2 drops into both eyes daily as needed 04/03/2023 Active nicotine (NICORETTE) 4 MG gumIndications:Toba sr account executive abuse Place 1 each (4 mg) inside cheek every hour as needed for smoking cessation 110 each 1 04/04/2023 Active Active Problems Problem Noted Date Diagnosed Date Chemical dependency 04/03/2023 Agitation 08/01/2020 Aggression 08/01/2020 Yuki 11/19/2014 MENTAL HEALTH 04/05/2012 Paranoia (psychosis) 03/16/2012 Polysubstance abuse 05/11/2011 Tobacco abuse 05/11/2011 Generalized anxiety disorder 05/11/2011 Overview: Diagnosis updated by automated process. Provider to review and confirm. Bipolar depression 05/11/2011 Migraines 05/11/2011 Dysmenorrhea 05/11/2011 CARDIOVASCULAR SCREENING; LDL GOAL LESS THAN 160 05/11/2011 Insomnia 05/11/2011 Immunizations Name Administration Dates Next Due Influenza (IIV3) PF 05/11/2011 Family History Medical History Relation Comments Alcohol/Drug Father Hypertension Father Eye Disorder Mother Cancer Paternal Grandfather Relation Status Comments Father Mother Paternal Grandfather Social History Tobacco Use Types Packs/Day Years Used Date Smoking Tobacco: Every Day Cigarettes Smokeless Tobacco: Never Tobacco Cessation:Ready to Q uit: No; Counseling Given: Yes Alcohol Use Standard Drinks/Week Comments Yes 0 (1 standard drink = 0.6 oz pur e alcohol) Last used Saturday PHQ-2 Answer Date Recorded PHQ-2 Score 1 04/03/2023 Adolescent Education Answer Date Record ed Getting School Help Needed Not on file 04/06 Sex and Gender Information Value Date Recorded Sex Assigned at Not on file Gender Identity Not on file Sexual Orientation Not on file Last Filed Vital Signs Vital Sign Reading Time Taken Comments Blood Pressure 121/58 01/23/2022 11:00 PM CDT Pulse 78 01/23/2022 11:00 PM CDT Temperature 37 ??C (98.6 ??F) 01/23/2022 8:05 PM CDT Respiratory Rate 18 01/23/2022 8:05 PM CDT Oxygen Saturation 100% 01/23/2022 11:15 PM CDT Inhaled Oxygen Concentration - - Weight 77.1 kg (170 lb) 01/23/2022 8:05 PM CDT Height 171.7 cm (5' 7.6) 01/23/2022 8:05 PM CDT Body Mass Index 26.16 01/23/2022 8:05 PM CDT Plan of Treatment Health Maintenance Due Date Last Done Comments ADVANCE CARE PLANNING 1992 ANNUAL REVIEW OF HM ORDERS 1992 Pneumococcal Vaccine: Pediatrics (0 to 5 Years) and At-Risk Patients (6 to 64 Years) (1 of 2 - PCV) 1998 HEPATITIS A IMMUNIZATION (1 of 2 - Risk 2-dose series) 10/12/2011 PAP 2013 YEARLY PREVENTIVE VISIT 12/18/2019 12/17/2018 COVID-19 Vaccine ( season) 2023 01/04/2021, 12/07/2020 PHQ-2 (once per calendar year) 2023 04/03/2023, 04/03/2023, 12/17/2018, Additional history exists DTAP/TDAP/TD IMMUNIZATION (7 - Td or Tdap) 11/14/2023 11/13/2013, 01/08/2005, 03/14/1998, Additional history exists INFLUENZA VACCINE (#1) 2024 1, 07/11/2010, 07/20/2009, Additional history exists HEPATITIS B IMMUNIZATION Completed 993, 1992, 1992 IPV IMMUNIZATION Completed 03/14/1998, 07/1993, 04/28/1993, Additional history exists MENINGITIS IMMUNIZATION Aged Out 02/12/2007 No l onger eligible based on patient's age to complete this topic HPV IMMUNIZATION Completed 09/12/2007, , 02/12/2007 HEPATITIS C SCREENING Completed 12/17/2018, 015 HIV SCREENING Completed 12/17/2018, 11/22/2014 RSV MONOCLONAL ANTIBODY Aged Out No l onger eligible based on patient's age to complete this topic Procedures Procedure Name Priority Date/Time Associated Diagnosis Comments HIV ANTIGEN ANTIBODY COMBO Routine 12/17/2018 12:22 PM CDT Screen for STD (sexually transmitted disease) HEPATITIS C ANTIBODY Routine 12/17/2018 12:22 PM CDT Encounter for screening for other viral diseases from Last 3 Months or Most Recently Relevant to Health Maintenance Results * HIV Antigen Antibody Combo (12/17/2018 12:22 PM CDT) HIV Antigen Antibody Combo Nonreactive NR^Nonrea ctive 12/18/2018 10:47 AM CDT [facility] Comment:HIV-1 p24 Ag & HIV-1 /HIV-2 Ab Not Detected Blood specimen (specimen) 12/17/2018 12:22 PM CDT 12/17/2018 12:23 PM CDT Nimo Morillo MD LAB - BLOOD ORDERA BLES Performing Organization Address City/[facility]/ZIP Co de Phone Number [facility] [address] [place] [address] * Hepatitis C antibody (12/17/2018 12:22 PM CDT) Hepatitis C Antibody Nonreactive NR^Nonre active 12/18/2018 10:47 AM CDT [facility] Comment: Assay performance characteristics have not been established for newborns, infants, and children Blood specimen (specimen) 12/17/2018 12:22 PM CDT 12/17/2018 12:23 PM CDT Nimo Morillo MD LAB - BLOOD ORDERA BLES Performing Organization Address City/[facility]/ZIP Co de Phone Number [facility] [address] [place] [address] from Last 3 Months or Most Recently Relevant to Health Maintenance Advance Directives For more information, please contact: [phone] * Full Code (Latest Code Status on File) Date Activated Date Inactivated Comments 08/01/2020 7:25 PM 10/05/2020 3:10 PM All basic an d advanced life-sustaining interventions are performed as appropriate Question Answer Comments Code status determined by: Discussion with luis nt/ legal decision maker * Full Code Date Activated Date Inactivated Comments 08/01/2020 7:25 PM 08/01/2020 7:25 PM All basic an d advanced life-sustaining interventions are performed as appropriate Question Answer Comments Code status determined by: Discussion with luis nt/ legal decision maker * Full Code Date Activated Date Inactivated Comments 11/19/2014 4:06 AM 12/21/2014 12:53 PM * Full Code Date Activated Date Inactivated Comments 04/05/2012 5:23 PM 04/11/2012 5:27 PM * Full Code Date Activated Date Inactivated Comments 03/16/2012 7:20 PM 03/20/2012 7:59 PM Care Teams Rn Palliative Care Relationship Specialty Start Date End Date Debra Dominguez MD [address] [address] PCP - General Family Medicine 09/05/20
--- OUTSIDE RECORDS SUMMARY | 2024-02-09 20:38 | XMS_ITS | Encounter Summary ---
Author Organization [facility] Address [address] [place] [address] Care Team Providers Care Stringed Instrument Repairer Name Role Phone Nimo Morillo MD Primary Care Provider [phone] Nimo Morillo MD Unavailable [phone] Debra Dominguez MD Primary Care Provider [phone] Reason for Visit * Reason Onset Date Comments [facility] 05/23/2020 Encounter Details Date Type Department Care Team ([facility] Contact Info) Description 05/23/2020 Telephone [facility] Behavioral Health Intake [address] [place] [address] Generic, Behavioral IntakeMD [facility] Social History Tobacco Use Types Packs/Day Years Used Date Smoking Tobacco: Every Day Cigarettes Smokeless Tobacco: Never Alcohol Use Standard Drinks/Week Comments Yes 0 (1 standard drink = 0.6 oz pur e alcohol) Last used Saturday PHQ-2 Answer Date Recorded PHQ-2 Score 2 12/17/2018 Sex and Gender Information Value Date Recorded Sex Assigned at Not on file Gender Identity Not on file Sexual Orientation Not on file COVID-19 Exposure Response Date Recorded In the last month, have you been in contact with someone who was confirmed or suspected to have Coronavirus / COVID-19? No / Unsure 05/26/2020 12:54 AM REGISTERED NURSE FETAL documented as of this encounter Miscellaneous Notes * Telephone Encounter - Krystian Melendez - 05/23/2020 2:11 PM CST rcvd call from clients mom Client seeking detox for oppiods Mom was directed to addiction specilties clinic @ [phone] They may call back Re L+ STERED NURSE FETAL documented in this encounter Plan of Treatment Not on file documented as of this encounter Visit Diagnoses Not on filedocumented in this encounter Additional Health Concerns Assessment Noted Time PHQ-9 Depression Total Score: 8 12/18/19 19 5:16 PM CDT documented as of this encounter Care Teams Stringed Instrument Repairer Relationship Specialty Start Date End Date Nimo Morillo MD [address] [place] [address] PCP - General Family Practice 12/17/18 09/04/20 Debra Dominguez MD [address] [address] PCP - General Family Medicine 09/05/20 Nimo Morillo MD [address] [place] [address] Assigned PCP 12/28/18 12/22/21 documented as of this encounter
--- OUTSIDE RECORDS SUMMARY | 2024-02-09 20:38 | XMS_ITS | Referral Summary ---
Author Organization [facility] Address [address] [place] [address] Care Team Providers Care Front End Wheel Loader Operator Name Role Phone Debra Dominguez MD Primary Care Provider [phone] Allergies Active Allergy Reactions Criticality Noted Date [...] 04/03/2023 Active nicotine (NICORETTE) 4 MG gumIndications:Toba medical accounting clerk abuse Place 1 each (4 mg) inside [...] Dates Next Due Influenza (IIV3) PF 05/11/2011 Social History Tobacco Use Types Packs/Day Years [...] 01/23/2022 8:05 PM CDT Plan of Treatment Not on file Procedures Procedure Name Priority Date/Time Associated Diagnosis [...] Nonreactive NR^Nonrea ctive 12/18/2018 10:47 AM CDT [facility] Comment:HIV-1 p24 Ag & HIV-1 /HIV-2 Ab Not Detected Blood specimen (specimen) 12/17/2018 12:22 PM CDT 12/17/2018 12:23 PM CDT Nimo Morillo MD LAB - BLOOD ORDERA BLES Performing Organization Address City/[facility]/ZIP Co de Phone Number [facility] [address] [place] [address] * Hepatitis C antibody (12/17/2018 12:22 PM CDT) Hepatitis C Antibody Nonreactive NR^Nonre active 12/18/2018 10:47 AM CDT [facility] Comment: Assay performance characteristics have not been established for newborns, infants, and children Blood specimen (specimen) 12/17/2018 12:22 PM CDT 12/17/2018 12:23 PM CDT Nimo Morillo MD LAB - BLOOD ORDERA BLES [facility] [address] [place] [address] from Last 3 Months or Most Recently Relevant to Health Maintenance Advance Directives For more information, please contact: [phone] * Full Code (Latest Code Status on File) Date Activated Date Inactivated Comments 08/01/2020 7:25 PM 10/05/2020 3:10 PM All basic an d advanced life-sustaining interventions are performed as appropriate Question Answer Comments Code status determined by: Discussion with patie nt/ legal decision maker * Full Code Date Activated Date Inactivated Comments 08/01/2020 7:25 PM 08/01/2020 7:25 PM All basic an d advanced life-sustaining interventions are performed as appropriate Question Answer Comments Code status determined by: Discussion with patie nt/ legal decision maker * Full Code Date Activated Date Inactivated Comments 11/19/2014 4:06 AM 12/21/2014 12:53 PM * Full Code Date Activated Date Inactivated Comments 04/05/2012 5:23 PM 04/11/2012 5:27 PM * Full Code Date Activated Date Inactivated Comments 03/16/2012 7:20 PM 03/20/2012 7:59 PM Care Teams Front End Wheel Loader Operator Relationship Specialty Start Date End Date Debra Dominguez MD [address] [address] PCP - General Family Medicine 09/05/20
--- OUTSIDE RECORDS SUMMARY | 2024-02-09 20:39 | XMS_ITS | Encounter Summary ---
Author Organization [facility] Address [address] [place] [address] Care Team Providers Care Instructional Design Technologist Name Role Phone No Ref-Primary, Physician Primary Care Provider Chichi Veloz MD Primary Care Provider [phone] Nimo Morillo MD Primary Care Provider [phone] Nimo Morillo MD Unavailable [phone] Debra Dominguez MD Primary Care Provider [phone] Encounter Details Date Type Department Care Team ([facility] st Contact Info) Description 05/24/2011 Telephone [facility] Behavioral Health Intake [address] [place] [address] Ricki Leach MD Social History Tobacco Use Types Packs/Day Years Used Date Smoking Tobacco: Every Day Cigarettes Alcohol Use Standard Drinks/Week Comments No 0 (1 standard drink = 0.6 oz pur e alcohol) Sex and Gender Information Value Date Recorded Sex Assigned at Not on file Gender Identity Not on file Sexual Orientation Not on file documented as of this encounter Miscellaneous Notes * Telephone Encounter - Treva Gomez - 05/24/2011 12:30 PM CST S-Dr Zheng refers pt to inpt MH from L+ tx program. B-Pt is refusing meds and is decompensating. She is paranoid, believes people are watching her and out to get her. She thinks her counselor is having an affair with her bf. She is not sleeping or eating on L+ A-Admit for safety and stabilization. R-Dr Leach accepted care / admit to [facility] from [facility] OP program. Treva Gomez STACKER OPERATOR documented in this encounter Plan of Treatment Not on file documented as of this encounter Visit Diagnoses Not on filedocumented in this encounter Care Teams Instructional Design Technologist Relationship Specialty Start Date End Date No Ref-Primary, Physician PCP - General 03/16/12 04/04/12 Chichi Veloz MD [address] [address] PCP - General Speciality Unknown 04/05/12 12/16/18 Nimo Morillo MD [address] [place] [address] PCP - General Family Practice 12/17/18 09/04/20 Debra Dominguez MD [address] [address] PCP - General Family Medicine 09/05/20 Nimo Morillo MD [facility] [place] [address] Assigned PCP 12/28/18 12/22/21 documented as of this encounter
--- OUTSIDE RECORDS SUMMARY | 2024-02-09 20:39 | XMS_ITS | Encounter Summary ---
Author Organization [facility] Address [address] [place] [address] Care Team Providers Care Straw Hat Plunger Operator Name Role Phone Chichi Veloz MD Primary Care Provider [phone] Nimo Morillo MD Primary Care Provider [phone] Nimo Morillo MD Unavailable [phone] Debra Dominguez MD Primary Care Provider Reason for Visit * Reason Onset Date Comments MH/CD Inpatient 11/19/2014 Other Encounter Details Date Type Department Care Team ([facility] st Contact Info) Description 11/19/2014 Telephone [facility] Behavioral Health Intake [address] [place] [address] Generic, Behavioral Intake, MH/CD Inpatient; Social History Tobacco Use Types Packs/Day Years Used Date Smoking Tobacco: Every Day Cigarettes Alcohol Use Standard Drinks/Week Comments Yes 0 (1 standard drink = 0.6 oz pur e alcohol) Last used Saturday Sex and Gender Information Value Date Recorded Sex Assigned at Not on file Gender Identity Not on file Sexual Orientation Not on file documented as of this encounter Miscellaneous Notes * Telephone Encounter - Humberto Aguilar - 11/23/2014 2:21 PM CDT ----- Message from MUKESH Goodrich sent at 11/23/2014 2:15 PM CDT ----- Regarding: not ok for LP 11/23/2014 Inna, on station 30 is not ok for LP per Chin RE: too [place]. Several recent hospital admissions when she was very manic, agitated, aggressive, yet her UA's on at least 2 recent occasions were negative. She clearly has some significant [place] issues, and would need a longer term dual program i.e. [facility], [facility], etc. I consulted with her CTC, Sherrill Connors, and shared by decision with her. [facility], [facility] * Telephone Encounter - Margaret Marti - 11/19/2014 2:50 AM CDT 11/19/14 S: pt was bib police to [facility]. Pt is manic. B: pt has hx of bipolar disorder. Tonight pt was running into traffic, trying to open peoples' doors. Pt reports using meth and cocaine. Not suicidal. Wants help restarting meds. A: pt is irritable in the er. Pt was placed on a 72-hour hold. R: admit 30/fareed documented in this encounter Plan of Treatment Not on file documented as of this encounter Visit Diagnoses Not on filedocumented in this encounter Care Teams Straw Hat Plunger Operator Relationship Specialty Start Date End Date Chichi Veloz MD [facility] [id number] [place] [address] PCP - General Speciality Unknown 04/05/12 12/16/18 Nimo Morillo MD [address] [place] [address] PCP - General Family Practice 12/17/18 09/04/20 Debra Dominguez MD [address] [address] PCP - General Family Medicine 09/05/20 Nimo Morillo MD [address] [place] [address] Assigned PCP 12/28/18 12/22/21 documented as of this encounter
--- OUTSIDE RECORDS SUMMARY | 2024-02-09 20:39 | XMS_ITS | Encounter Summary ---
Author Organization [facility] Address [address] [place] [address] Care Team Providers Care License Distributor Name Role Phone No Ref-Primary, Physician Primary Care Provider Chichi Veloz MD Primary Care Provider [phone] Nimo Morillo MD Primary Care Provider [phone] Nimo Morillo MD Unavailable [phone] Debra Dominguez MD Primary Care Provider [phone] Encounter Details Date Type Department Care Team ([facility] st Contact Info) Description 03/16/2012 Telephone [facility] Behavioral Health Intake [address] [place] [address] Generic, Behavioral Intake, Social History Tobacco Use Types Packs/Day Years [...] encounter Miscellaneous Notes * Telephone Encounter - Sriram Estrada - 03/20/2012 8:31 AM CDT Bedside cd eval order 12nb. Chin informed of need. * Telephone Encounter - Liv Holman - 03/16/2012 3:56 PM CDT S: Dr Rosado called w/ report. Presented in ed screaming & yelling, required restraints by security. Using thc past few days. Stopped meds aprox 1+ wks ago. Paranoid. Believes she's being trackedby police through her cell phone. Not sleeping. Very labile; cooperative, then crying and agitated. B: hx of nonspecific psychosis & polysub. Op psychiatrist-Dr Cerna. fam hx of SI. A: 72 hr hold. No medical issues. utox + thc. R: 12/Dr Leach (Dr Neumann accepts) documented in this encounter Plan of Treatment Not on file documented as of this encounter Visit Diagnoses Not on filedocumented in this encounter Care Teams License Distributor Relationship Specialty Start Date End Date No Ref-Primary, Physician PCP - General 03/16/12 04/04/12 Chichi Veloz MD [facility] [id number] [place] [address] PCP - General Speciality Unknown 04/05/12 12/16/18 Nimo Morillo MD [address] [place] [address] PCP - General Family Practice 12/17/18 09/04/20 Debra Dominguez MD [address] [address] PCP - General Family Medicine 09/05/20 Nimo Morillo MD [address] [place] [address] Assigned PCP 12/28/18 12/22/21 documented as of this encounter
--- OUTSIDE RECORDS SUMMARY | 2024-02-09 20:39 | XMS_ITS | Encounter Summary ---
Author Organization [facility] Address [address] [place] [address]. [place] [address] Care Team Providers Care Classroom Paraprofessional Name Role Phone Chichi Veloz MD Primary Care Provider [phone] Nimo Morillo MD Primary Care Provider [phone] Nimo Morillo MD Unavailable [phone] Debra Dominguez MD Primary Care Provider [phone] Reason for Visit * Reason Comments Other Encounter Details Date Type Department Care Team ([facility] Contact Info) Description 11/23/2014 Telephone [facility] Behavioral Health Intake [address] [place] [address] Generic, Behavioral Intake, Social History [...] encounter Miscellaneous Notes * Telephone Encounter - Lauren Humberto - 11/23/2014 2:21 PM CDT ----- Message from MUKESH Goodrich sent at 11/23/2014 2:15 PM CDT ----- Regarding: not ok for LP 11/23/2014 Inna on station 30 is not ok for LP per Chin RE: too [place]. Several recent hospital admissions when she was very manic, agitated, aggressive, yet her UA's on at least 2 recent occasions were negative. She clearly has some significant [place] issues, and would need a longer term dual program i.e. [facility], [place], etc. I consulted with her CTC, Sherrill Connors, and shared by decision with her. Estiven [facility], [facility] documented in this encounter Plan of Treatment Not on file documented as of this encounter Visit Diagnoses Not on filedocumented in this encounter Care Teams Classroom Paraprofessional Relationship Specialty Start Date End Date Chichi Veloz MD [address] [address] PCP - General Speciality Unknown 04/05/12 12/16/18 Nimo Morillo MD [address] [place] [address] PCP - General Family Practice 12/17/18 09/04/20 Debra Dominguez MD [address] [address] PCP - General Family Medicine 09/05/20 Nimo Morillo MD [address] [place] [address] Assigned PCP 12/28/18 12/22/21 documented as of this encounter
--- OUTSIDE RECORDS SUMMARY | 2024-02-09 20:39 | XMS_ITS | Encounter Summary ---
Author Organization [place] Address [facility] [place] [address] Care Team Providers Care Electric Meter Reader Name Role Phone No Ref-Primary, Physician Primary Care Provider Chichi Veloz MD Primary Care Provider [phone] Nimo Morillo MD Primary Care Provider [phone] Nimo Morillo MD Unavailable [phone] Debra Dominguez MD Primary Care Provider [phone] Encounter Details Date Type Department Care Team ([facility] st Contact Info) Description 05/02/2011 Telephone [facility] Behavioral Health Intake [address] [place] [address] Generic, Behavioral Intake, Social History Tobacco Use Types Packs/Day Years Used Date Smoking Tobacco: Never Assessed Sex and Gender Information Value Date Recorded Sex Assigned at Not on file Gender Identity Not on file Sexual Orientation Not on file documented as of this encounter Miscellaneous Notes * Telephone Encounter - Mer Kohler - 06/06/2011 12:15 PM CST CALLED PT'S HOME #,MOTHER ANS &SAID PT IS ATTENDING DOP TR AT .SHE IS NOT INTERESTED IN LP ATTHIS TIME.SPOKE TO PT'S COUNSELOR ZEKE,THEY ALLOWED PT TO ATTEND & FEW DAYS & PT IS DONE WITH TR. THEY DID NOT REGISTER PT. TH SAFETY ENGINEER * Telephone Encounter - Bryan Marlow - 06/01/2011 2:04 PM CST Client was transferred from L+ to and on MH for 7 days. Even tho L+ (not sure who) kept telling [facility] unit her bed was saved it ended up not being saved for her even tho she only had @ 10 days left of L+ tx. She has now been d/c'd home from and is on the priority list for admission [facility]. TH SAFETY ENGINEER * Telephone Encounter - Bryan Marlow - 05/07/2011 9:09 AM CDT Client called today for bed. Left on list for L+ admit. * Telephone Encounter - Bryan Marlow - 05/04/2011 12:41 PM CDT L+ bed available for admit on Saturday, she is waiting to hear from another tx facility for admit today but will call either way. * Telephone Encounter - Bryan Marlow - 05/03/2011 4:52 PM CDT On community wait list. * Telephone Encounter - Bryan Marlow - 05/03/2011 4:51 PM CDT Message copied by BRYAN MARLOW on SatMay 03, 2011 4:51 PM ------ Message from: ABENA WOODS Created: SatMay 03, 2011 4:49 PM Regarding: ok for LP Inna is ok for LP per Nay, She has Bhsi, no cert would need to talk with bs re oop. Kaz * Telephone Encounter - Sriram Estrada - 05/03/2011 12:15 PM CDT recpt of eval by mak Forwarded to kaz for screening of lodging. jpm * Telephone Encounter - Sriram Estrada - 05/03/2011 10:28 AM CDT Mo calls to f/u on ins matters and assess. Mo will arrange to have cd evals sent for screening. Will call when being faxed. jpm * Telephone Encounter - Humberto Aguilar - 05/02/2011 4:34 PM CDT Calling for lodging plus. Had previous treatment at [facility] and [facility] in [address] and [facility] in [facility]. Was just in the [facility] program until last week. Court is mandating this treatment. Has drug charges from [facility]. Has as po: christy ortiz in [facility]: [phone]. Relapsed on etoh but doc is stimulants. Will have recent eval faxed for kaz to review. Client said she had the eval on 04/19 and relapsed subsequent to the eval. kab documented in this encounter Plan of Treatment Not on file documented as of this encounter Visit Diagnoses Not on filedocumented in this encounter Care Teams Electric Meter Reader Relationship Specialty Start Date End Date No Ref-Primary, Physician PCP - General 03/16/12 04/04/12 Chichi Veloz MD [facility] [id number] [place] [address] PCP - General Speciality Unknown 04/05/12 12/16/18 Nimo Morillo MD [address] [place] [address] PCP - General Family Practice 12/17/18 09/04/20 Debra Dominguez MD [address] [address] PCP - General Family Medicine 09/05/20 Nimo Morillo MD [address] [place] [address] Assigned PCP 12/28/18 12/22/21 documented as of this encounter
== END 2024-02-09 20:53 | disposition home or self-care (01) ==
PROVIDERS: Emergency Provider Family Medicine; PCP Family Medicine
DX: S92.421A Displaced fracture of distal phalanx of right great toe, initial encounter for closed fracture (principal); S91.201A Unspecified open wound of right great toe with damage to nail, initial encounter; Z23 Encounter for immunization
CPT/HCPCS: 64450; 73660; 90471; 90715; 99284